=== PATIENT | female | born 1980 ===

== ENCOUNTER 2017-06-29 12:39 | Outpatient (CLI) | payer MEDICAID ==
--- NOTE | 2017-07-01 11:24 | Ultrasound Report ---
OB ULTRASOUND: 06/29/2017 CLINICAL INDICATION: anatomy. TECHNIQUE: Real-time scanning was performed with technology sales representative static images obtained. LAST MENSTRUAL PERIOD: 01/10/2017 Clinical Age: 24 weeks 2 days US Age: 22 weeks 5 days EFW Hadlock: 546 g EFW% Hadlock: 5% Heart Rate: 166 bpm EDC: 10/17/2017 US EDC: 10/28/2017 BPD Hadlock: 22 weeks 0 days; Mean mm 52.5 HC Hadlock: 22 weeks 4 days; Mean mm 205.1 AC Hadlock: 22 weeks 3 days; Mean mm 175.5 FL Hadlock: 23 weeks 5 days; Mean mm 42.0 Presentation: --- Placental Location: posterior Cervical Length: 4.2 cm Amniotic Fluid: 4.5 cm FINDINGS: There is a single viable intrauterine gestation, in variable position. heart rate is 166 BPM. The placenta is posterior, without evidence of previa. Amniotic fluid volume is subjectively normal, with a deepest pocket of 4.5 cm. By size, the fetus measures 22 weeks 5 days (24 weeks 2 days by LMP). The following anatomic structures were visualized and appear normal: The intracranial contents, including the ventricles and posterior fossa; the lips and orbits; the spine; the heart, including 4 chamber view and outflow tracts, and diaphragm; the abdominal contents, including the stomach, the bilateral kidneys, and urinary bladder, as well as a normal 3 vessel cord insertion; 4 limbs. Incidental note is made of a 1.3 cm leiomyoma in the anterior myometrium. No free fluid or adnexal lesion is appreciated. IMPRESSION: SINGLE VIABLE INTRAUTERINE GESTATION, WITH SIZE IN KEEPING WITH LMP DATING. NORMAL ANATOMIC SURVEY. INCIDENTAL SMALL LEIOMYOMA. MTDD
== END 2017-06-29 12:40 | disposition home or self-care (01) ==
LOC: DI 12:39
PROVIDERS: ATTEND Nurse Practitioner Obstetrics & Gynecology
DX: Z36.9 Encounter for antenatal screening, unspecified (principal); O34.12 Maternal care for benign tumor of corpus uteri, second trimester; D25.9 Leiomyoma of uterus, unspecified; Z3A.24 24 weeks gestation of pregnancy
CPT/HCPCS: 76811

== ENCOUNTER 2017-07-18 10:18 | Outpatient (CLI) | payer MEDICAID ==
[2017-07-18 12:09] LABS: BASOPHILS # (AUTO) 0.1 10^3/uL (0.0-0.1); BASOPHILS % (AUTO) 0.7 %; EOSINOPHILS # (AUTO) 0.2 10^3/uL (0.0-0.7); EOSINOPHILS % (AUTO) 2.1 %; HGB - HEMOGLOBIN 11.8 g/dL (12.0-16.0); LYMPHOCYTES # (AUTO) 1.7 10^3/uL (1.5-3.5); LYMPHOCYTES % (AUTO) 15.3 %; MEAN CORPUSCULAR HEMOGLOBIN 30.8 pg (27.0-31.0); MEAN PLATELET VOLUME 6.6 fL (7.9-10.8); MONOCYTES # (AUTO) 0.9 10^3/uL (0.0-1.0); MONOCYTES % (AUTO) 8.6 %; NEUTROPHILS % (AUTO) 73.3 %; PLT - PLATELET COUNT 307 10^3/uL (130-450); RED BLOOD COUNT 3.83 10^6/uL (4.20-5.40); RED CELL DISTRIBUTION WIDTH 12.8 % (12.0-15.0); WHITE BLOOD COUNT 10.9 x10^3/uL (4.8-10.8)
== END 2017-07-18 10:19 | disposition home or self-care (01) ==
LOC: LAB 10:18
PROVIDERS: ATTEND Registered Nurse
DX: Z34.82 Encounter for supervision of other normal pregnancy, second trimester (principal)
CPT/HCPCS: 36415; 82950; 85025; 86850

== ENCOUNTER 2017-07-22 13:40 | Outpatient (CLI) | payer MEDICAID | END 2017-07-22 13:41 | disposition home or self-care (01) | LOC: LAB.R 13:40 | PROVIDERS: ATTEND Physician Assistant Medical | DX: R07.0 Pain in throat (principal) | CPT/HCPCS: 87070 ==

== ENCOUNTER 2017-08-10 06:13 | Outpatient (CLI) | payer MEDICAID | END 2017-08-10 06:14 | disposition home or self-care (01) | LOC: LAB.R 06:13 | PROVIDERS: ATTEND Nurse Practitioner Obstetrics & Gynecology | DX: N89.8 Other specified noninflammatory disorders of vagina (principal) | CPT/HCPCS: 87480; 87510; 87660 ==

== ENCOUNTER 2017-09-20 08:00 | Outpatient (CLI) | payer MEDICAID | END 2017-09-20 08:01 | disposition home or self-care (01) | LOC: LAB.R 08:00 | PROVIDERS: ATTEND Nurse Practitioner Obstetrics & Gynecology | DX: Z36.85 Encounter for antenatal screening for Streptococcus B (principal) | CPT/HCPCS: 87081 ==

== ENCOUNTER 2017-10-22 19:05 | Inpatient (IN) | payer MEDICAID ==
[2017-10-22 19:59] LABS: RUPTURE OF MEMBRANES PLUS POSITIVE (NEGATIVE)
[2017-10-22] MEDS ORDERED: ONDANSETRON 4 MG/2 ML VIAL IVP PRN (20:10)
[2017-10-22] MEDS ORDERED: SODIUM CHLORIDE FLUSH 0.9% 10 ML SYRINGE IVP PRN (20:10)
[2017-10-22 20:42] LABS: BASOPHILS % (AUTO) 0.3 %; EOSINOPHILS # (AUTO) 0.1 10^3/uL (0.0-0.7); EOSINOPHILS % (AUTO) 1.1 %; HGB - HEMOGLOBIN 12.5 g/dL (12.0-16.0); LYMPHOCYTES # (AUTO) 1.9 10^3/uL (1.5-3.5); LYMPHOCYTES % (AUTO) 16.4 %; MEAN CORPUSCULAR HEMOGLOBIN 29.4 pg (27.0-31.0); MEAN CORPUSCULAR HGB CONC 34.2 g/dL (32.0-36.0); MEAN PLATELET VOLUME 7.9 fL (7.9-10.8); MONOCYTES # (AUTO) 0.8 10^3/uL (0.0-1.0); MONOCYTES % (AUTO) 6.6 %; NEUTROPHILS # (AUTO) 8.7 10^3/uL (1.5-6.6); NEUTROPHILS % (AUTO) 75.6 %; PLT - PLATELET COUNT 305 10^3/uL (130-450); RED BLOOD COUNT 4.27 10^6/uL (4.20-5.40); RED CELL DISTRIBUTION WIDTH 13.3 % (12.0-15.0); WHITE BLOOD COUNT 11.6 x10^3/uL (4.8-10.8)
[2017-10-22] MEDS ORDERED: miSOPROStol 100 MCG TABLET BC SCH (21:00)
[2017-10-22] MEDS ORDERED: fentaNYL 100 MCG/2 ML VIAL IVP PRN (21:29)
--- NOTE | 2017-10-22 21:44 | HISTORY & PHYSICAL EXAMINATION ---
Admit History - Instructions Ramona/Slash: -Left hand click circles element as positive or present. -Right hand click slashes element as negative or not present. - Visit Reason Visit Reason: Membranes rupture - : 1 Parity: 0 Premature: 0 Ectopic: 0 : 0 Care: positive: [facility] Risk/History: positive: None Complications This : positive: None Smoking Status: Never smoker - Mother's Labs Mother's Blood Type: positive: AB Mother's RH: positive: Positive GBS: positive: Group B Step Negative Rubella Status: positive: Immune Meds/Allgy - Allergies Allergies/Adverse Reactions: Allergies Allergy/AdvReac Type Severity Reaction Status Date / Time codeine Allergy Cramps Verified 10/22/17 21:00 Physical - Abdominal Exam Vital Signs: Temp Pulse Resp BP Pulse Ox 36.6 C 98 18 133/86 H 98 10/22/17 19:25 10/22/17 19:25 10/22/17 19:25 10/22/17 19:25 10/22/17 19:25 Contraction Frequency (min/apart): 2 Contraction Intensity: positive: Mild to moderate, Irritability Uterine Resting Tone: positive: Soft - Monitoring Heart Rate Baseline: 140 Strip Review: positive: Category I - Presentation Presentation: positive: Vertex - Vaginal Exam Membranes: positive: Membranes ruptured Dilation (in cm): 4 Effacement (%): 90 Station: positive: 0 Cervical Position: positive: Midposition - Speculum Exam Speculum Exam Performed: positive: Yes Findings: positive: Nitrazine, Other - Other Notes Labor Progress Note/Additional Text: HPI: This 37yo @ 40.5wks gestation presents with c/o intermittent periods of painful contractions and gush of clear vaginal fluid with continued "light trickle" at 1300 on 10/22/2017. At that time she was experiencing painful contractions every 5-10 minutes with significant vaginal pressure. Pt reports at approximately 1700 contractions decreased and she has felt very few contractions since that time. Reports continued leakage of small amount of clear vaginal fluid. Denies VB. Reports +FM. Nitrizine inconclusive. ROM plus positive. , mom, and mother in law are supportive at the bedside. SVE 4/80/0, vertex, posterior (unchanged from previous examination in the office yesterday) 2 contractions appreciate via tocometry in a 20 minute period of time - pt reports she is unable to feel them. Esthela transferred her care to [facility] and has been in the care of the midwifery service since 20 wks gestation. Her has been complicated only by advanced maternal age and recurrent vaginal candidias. Dating criteria: 1.) LMP 01/10/2017 2.) Initial ultrasound @ 8.5wks - agrees 3.) Serial exams 14-40 wks - agree OB History: G1: Current [employer] History: Endometriosis with laparoscopy/hysteroscopy/D&C in 2012 No hx STDs. Last pap 10/30/2015 WNL; no hx abnormal pap Menarche age 17; regular cycle q 27-28 days PMHx: Anxiety Past Surgical Hx: non- related D&C in 2012 Social Hx: Never smoker, no ETOH or IVDA. Pt is engaged to her long-time partner Trever. 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 Labs: Blood type AB, Rh positive, antibody neg Hgb 12.2, Hct 37.0 PLT 307 HIV non-reactive Genetic testing: [place] screen @ 14.2wks Low probability x3 28 week labs: 1 hour GTT 89 Hgb 11.8, Hct 33.7 PLT 307 Antibody neg GBS negative Tdap 07/29/2017 Allergies: Codeine; penicillins Medications: PNV Physical Exam: Heart RRR w/o M/G/R Lungs CTAB Abdomen gravid, soft, nontender. EFW 3400g Bilateral LE's no edema Mood is good Assessment: 37yo @ 40.5wks gestation by L=8.5wks gestation Augmentation of labor GBS neg SROM x 8 hours Plan: Misoprostol 50mcg BC q 4 hours Repeat SVE prior to next dose of misoprostol if contractions are increasing in frequency and intensity Continuous monitoring Encouraged position changes with discomfort Ambien 5mg x1 PRN for sleep May use hydrotherapy or nitrous oxide for pain management Anticipate spontaneous vaginal delivery
[2017-10-22] MEDS ORDERED: LACTATED RINGERS 1,000 ML IV SCH (22:00)
[2017-10-22] MEDS ORDERED: ZOLPIDEM 5 MG TABLET PO PRN (22:25)
[2017-10-23] MEDS ORDERED: OXYTOCIN/SODIUM CHLORIDE 500 ML IV ONE (00:23)
[2017-10-23] MEDS ORDERED: SODIUM CHLORIDE FLUSH 0.9% 10 ML SYRINGE IVP SCH (01:00)
[2017-10-23] MEDS ORDERED: miSOPROStol 100 MCG TABLET BC SCH (01:00)
[2017-10-23] MEDS ORDERED: HYDROCORTISONE/PRAMOXINE 10 GM PR PRN (02:33)
[2017-10-23] MEDS ORDERED: WITCH HAZEL/GLYCERIN 1 EACH MED..PAD TOP PRN (02:33)
[2017-10-23] MEDS ORDERED: OXYTOCIN/SODIUM CHLORIDE 250 ML IV ONE (02:33)
--- NOTE | 2017-10-23 02:50 | DELIVERY NOTE ---
Delivery Note - Labor Labor: positive: Spontaneous, Other - Delivery Method Delivery Method: positive: Spontaneous vaginal delivery - Presentation Presentation: positive: Vertex, MAY - left occiput anterior - Nuchal Cord Nuchal Cord: positive: None - Amniotic Fluid Description Amniotic Fluid Description: positive: Clear - Episiotomy Type Episiotomy Type: positive: None - Laceration Laceration: positive: None - Delivery Outcome Delivery Outcome: positive: Livebirth - [place]: positive: Placed in direct skin contact with mother, Bulb syringe, Stimulated, Warmed, [place] used sex: positive: Male - Cord Cord: positive: 3 vessels - Placenta Placenta: positive: Intact, Spontaneous - Estimated Blood Loss Estimated Blood Loss (in cc): 200 - Post Delivery Events Post Delivery Events: positive: No post delivery events - Delivery Comments (Free Text/Narrative) Delivery Comments (Free Text/Narrative): Labor: This 37yo @ 40.5wks gestation by L=8.2wk U/S presented @ 2000 with SROM x 7 hours. She reports intermittent painful contractions throughout the day and felt she was entering active labor prior to leakage of clear vaginal fluid at 1300 on 10/22/2017. She reports cessation of contractions at approximately 1700. Pt continued to experience leaking of a small amount of clear vaginal fluid and presented to [facility] at approximately 2000 on 10/22/2017. Cervix was 4/80/0, posterior, vertex. FHR pattern demonstrated a Category I tracing throughout labor. Misoprostol 50mcg BC was administered x1 for augmentation. Patient experienced a large gush of clear vaginal fluid at approximately 0000. She progressed to c/c/+1 with spontaneous urge to push at 0122 on 10/23/2017. : Normal of viable male infant. No nuchal. 's 9 and 9 at 1 and 5 min respectively at 0200 on 10/23/2017. The was placed on maternal abdomen, stimulated, dried, and placed skin to skin. The umbilical cord was allowed to stop pulsating at which time it was doubly clamped and cut by FOB. Cord blood was obtained. Pitocin administered via IV for hemostasis. Placenta delivered spontaneously and intact at 0206. EBL 200mL. Fourth Stage: Uterine fundus firm and there is no excessive bleeding. The perineum, vagina, and cervix were inspected and found to be intact with significant bruising noted to pelvic floor. initiated. Family bonding well. Both mother and baby were left in stable condition.
[2017-10-23] MEDS ORDERED: LACTATED RINGERS 1,000 ML IV SCH (03:00)
[2017-10-23] MEDS: IBUPROFEN 800 MG TABLET PO SCH ×4 (04:47→22:12)
[2017-10-23] MEDS: ACETAMINOPHEN 500 MG TABLET PO SCH ×3 (04:47→21:06)
[2017-10-23] MEDS: DOCUSATE SODIUM 100 MG CAPSULE PO SCH ×2 (09:12→21:09)
[2017-10-23] MEDS ORDERED: BENZOCAINE/MENTHOL LOZENGE MM PRN (09:53)
--- NOTE | 2017-10-23 10:01 | PROVIDER PROGRESS NOTE ---
Subjective - Subjective Subjective: S: Bonding well with baby. with some difficulty getting baby to latch initially. Feels well rested and mood is good. Bleeding decreased and is light. Pain is well controlled with ibuprofen. C/o slight sore throat which she feels is likely related to screaming in labor - requests throat lozenge for relief. , mother, mother in law, and father in law supportive at the bedside. O: BP 118/70, HR 77, T 36.6, RR 18 Heart RRR w/o M/G/R, lungs CTAB. Abdomen soft and nontender with fundus firm at U-2. Bilateral LE's no edema. Perineum intact with mild edema. Bruising improved. A: 37yo -->P1 day of delivery s/p TSVD of viable male over intact perineum P: Continue routine pp care and medications. Close attention paid to today. Plan for discharge home tomorrow. Pt and family verbalized understanding and agree to above plan. They deny further questions or concerns at this time. Objective - Vital Signs/Intake & Output Vital Signs: Vital Signs x48h Temp Pulse Resp BP Pulse Ox 10/23/17 08:00 36.6 C 77 18 118/70 100 10/23/17 05:14 2.7 C L 89 18 110/61 10/23/17 04:01 93 16 116/67 10/23/17 03:48 37.1 C 90 118/73 10/23/17 03:33 90 16 116/75 10/23/17 03:18 92 113/73 10/23/17 03:03 87 16 127/59 L 10/23/17 02:30 144/73 H 10/23/17 02:15 18 135/73 H Intake & Output: Intake & Output 10/20/17 10/21/17 10/22/17 10/23/17 23:59 23:59 23:59 23:59 Intake Total 720 Balance 720 - Lab Results Fish Bones: 10/22/17 20:20 Other Labs: Lab Results x24hrs 10/22/17 10/22/17 Range/Units 20:20 19:35 WBC 11.6 H (4.8-10.8) x10^3/uL RBC 4.27 (4.20-5.40) 10^6/uL Hgb 12.5 (12.0-16.0) g/dL Hct 36.7 L (37.0-47.0) % MCV 86.0 (81.0-99.0) fL MCH 29.4 (27.0-31.0) pg MCHC 34.2 (32.0-36.0) g/dL RDW 13.3 (12.0-15.0) % Plt Count 305 (130-450) 10^3/uL MPV 7.9 (7.9-10.8) fL Neut # (Auto) 8.7 H (1.5-6.6) 10^3/uL Lymph # (Auto) 1.9 (1.5-3.5) 10^3/uL Trigg # (Auto) 0.8 (0.0-1.0) 10^3/uL Eos # (Auto) 0.1 (0.0-0.7) 10^3/uL Baso # (Auto) 0.0 (0.0-0.1) 10^3/uL Absolute Nucleated RBC 0.00 x10^3/uL Nucleated RBC % 0.0 /100WBC Membranes Rupture POSITIVE A (NEGATIVE)
[2017-10-24] MEDS: IBUPROFEN 800 MG TABLET PO SCH ×2 (04:50→11:07)
[2017-10-24] MEDS: ACETAMINOPHEN 500 MG TABLET PO SCH (04:51)
[2017-10-24 05:40] LABS: HGB - HEMOGLOBIN 11.4 g/dL (12.0-16.0); MEAN CORPUSCULAR HGB CONC 33.5 g/dL (32.0-36.0); MEAN CORPUSCULAR VOLUME 86.8 fL (81.0-99.0); MEAN PLATELET VOLUME 7.6 fL (7.9-10.8); RED BLOOD COUNT 3.93 10^6/uL (4.20-5.40); RED CELL DISTRIBUTION WIDTH 13.4 % (12.0-15.0); WHITE BLOOD COUNT 11.5 x10^3/uL (4.8-10.8)
--- NOTE | 2017-10-24 08:47 | Discharge Plan ---
Discharge Plan Disposition: 01 Home, Self Care Condition: Good Diet: Regular Activity Restrictions: No Restrictions Shower Restrictions: No Driving Restrictions: No Weight Bearing: Full Weight No Smoking: If you smoke, Please STOP! Call for help. Follow-up with: Viola Woods CNM, ARNP [Primary Care Provider] -
[2017-10-24 08:49] VITALS: BP 122/70
[2017-10-24] MEDS ORDERED: MEASLES,MUMPS & RUBELLA VACC 0.5 ML VIAL SUBQ ONE (08:49)
--- NOTE | 2017-10-24 08:49 | PROVIDER PROGRESS NOTE ---
Subjective - Subjective Subjective: FINAL PROGRESS NOTE: S: Bonding well with baby. with little difficulty. Nipples sore with initial latch but improves throughout nursing session. Pain well controlled with ibuprofen. Perineum tender and bruised but overall she feels her pain is well controlled. Mood is good. Was able to get some good sleep last night. Bleeding decreased and is light. O: BP 124/79, HR 75, RR 18, O2 100, T36.7 Heart RRR w/o M/G/R, lungs CTAB, abdomen soft and nontender with fundus firm at U-3. Bilateral LE's no edema. Mood is good. A: 37yo -->P1 PPD#1 s/p TSVD of viable male MMR equivocal P: Reviewed care and warning signs. Has emergency contact number. Rx handwritten and provided to pt for Ibuprofen 800mg Sig 1 tab PO q8hrs PRN pain #60 with 1 refill; All purpose nipple ointment #30 gram tube to apply sparingly to affected nipples PRN with 2 refills. MMR administration prior to discharge home today. Unsure of her plans for contraception - likely condoms. She plans to f/u with myself at [facility] in 1 week for support visit, in 3 weeks for routine visit, and in 8 weeks for annual well woman exam. Pt and verbalized understanding and agree to above plan. Denies further questions or concerns at this time. Objective - Vital Signs/Intake & Output Intake & Output: Intake & Output 10/21/17 10/22/17 10/23/17 10/24/17 23:59 23:59 23:59 23:59 Intake Total 3120 Balance 3120 - Lab Results Fish Bones: 10/24/17 05:25 Other Labs: Lab Results x24hrs 10/24/17 10/24/17 Range/Units 05:25 05:25 WBC 11.5 H (4.8-10.8) x10^3/uL RBC 3.93 L (4.20-5.40) 10^6/uL Hgb 11.4 L (12.0-16.0) g/dL Hct 34.1 L (37.0-47.0) % MCV 86.8 (81.0-99.0) fL MCH 29.0 (27.0-31.0) pg MCHC 33.5 (32.0-36.0) g/dL RDW 13.4 (12.0-15.0) % Plt Count 292 (130-450) 10^3/uL MPV 7.6 L (7.9-10.8) fL Rubella IgG Antibody 12.1 IU/mL
[2017-10-24] MEDS: DOCUSATE SODIUM 100 MG CAPSULE PO SCH (09:02)
--- NOTE | 2017-10-24 13:19 | Labor Flowsheet ---
Labor Flowsheet Datetime Report Generated by CPN: 10/24/2017 13:19 Datetime: 10/24/2017 08:17 VITAL SIGNS NBP Sys/Mehnaz/Mean (mmHg): 122 : 70 : 83 Pulse: 78 LaborFlag: Labor Datetime: 10/23/2017 02:00 UTERINE ACTIVITY Monitor Mode: External Frequency (min): q1-2 Quality: Strong Pattern: Tachysystole: > 5 Contractions in 10 Minutes Resting Tone (Palpate): Relaxed ASSESSMENT A Monitor Mode: External US FHR Baseline Rate : 120 Variability: Moderate 6-25 bpm Accelerations: 15X15 Decelerations: None Category: Category I Vaginal Exam Comments: Delivery of viable male Datetime: 10/23/2017 01:38 Station: 3 Medication Comments: nitrous discontinued Datetime: 10/23/2017 01:30 FHR Baseline Changes: Bradycardia Datetime: 10/23/2017 01:22 VAGINAL EXAM Dilatation (cm): 10.0 Datetime: 10/23/2017 01:15 Duration (sec): poor trace Datetime: 10/23/2017 00:55 Patient Care Comments: patient screaming and uncontrolled stating "the baby is coming" SVE at this time (7cm.) CNM Peggy called and notified of SVE, and patient discomfort. Orders received for PRN Nitr ous Oxide (See nursing note written by RNC Spear. Datetime: 10/23/2017 00:50 Comments: FHT difficult to obtain while patient laboring on toilet U/S adjusted frequently and manu ally held in place to attain FHT. Datetime: 10/23/2017 00:25 Effacement (%): 90 Exam by: Arin Lazo RNC Vaginal Bleeding: Normal Show Cervix, Consistency: Soft Cervix, Position: Anterior Datetime: 10/23/2017 00:10 Monitor Interventions for UA: [place] Adjusted Datetime: 10/22/2017 23:55 Temperature (C): 36.6 Temperature Route: Oral Datetime: 10/22/2017 23:45 Membrane Status: Ruptured Membranes Ruptured Date/Time: 10/22/2017 15:00 Membranes Rupture Method: Spontaneous Amniotic Fluid Color: Clear Amniotic Fluid Amount: Large Amniotic Fluid Odor: None Pool: Positive Datetime: 10/22/2017 23:00 I/O Interventions: Up to BR Datetime: 10/22/2017 22:59 PAIN Pain Assessment Comments: Patient reports that pain has intensified but declines pain intervention at this time. plan of care reviewed as per to for nursing staff to not inquire about pain level so fr equently and that patient will verbalize when/if she desires pain intervention. patient states freque ntly changing position and activity is helping her to cope at this time. Datetime: 10/22/2017 22:58 Patient Position/Activity: Birthing Ball Datetime: 10/22/2017 21:30 Monitor Interventions for FHR: Ultrasound Adjusted PATIENT CARE Oxygen Method: Room Air Datetime: 10/22/2017 21:12 COMMUNICATION Communication: Provider at Bedside Provider Notified (Name): CNM Peggy Notification Reason: Labor Status; Patient Request Datetime: 10/22/2017 21:09 MEDICATIONS Cervical Ripening Agents: Cytotec @ (Annotations: 50 BC)
[2017-10-25 14:12] LABS: HEPATITIS B SURFACE ANTIGEN NON-REACTIVE (NON-REACTIVE)
[2017-10-25 14:13] LABS: HEPATITIS C ANTIBODY NON-REACTIVE (NON-REACTIVE)
== END 2017-10-24 12:00 | disposition home or self-care (01) | DRG 775 ==
LOC: WFO 19:05 → FBP 19:08 → WFO 21:03 → FBP 10-23 20:19
PROVIDERS: ADMIT Nurse Practitioner Obstetrics & Gynecology; ATTEND Nurse Practitioner Obstetrics & Gynecology
PROC: 3E033VJ Introduction of Other Hormone into Peripheral Vein, Percutaneous Approach (ICD-10-PCS; principal; 2017-10-23)
PROC: 10E0XZZ Delivery of Products of Conception, External Approach (ICD-10-PCS; 2017-10-23)
PROC: 3E0P7VZ Introduction of Hormone into Female Reproductive, Via Natural or Artificial Opening (ICD-10-PCS; 2017-10-23)
DX: O80 Encounter for full-term uncomplicated delivery (principal); Z3A.40 40 weeks gestation of pregnancy; Z23 Encounter for immunization; Z37.0 Single live birth
CPT/HCPCS: 36415; 81599; 84112; 85025; 85027; 86762; 86803; 87340; 99213

== ENCOUNTER 2018-05-12 09:01 | Outpatient (CLI) | payer OTHER ==
[2018-05-12 11:12] LABS: BASOPHILS # (AUTO) 0.1 10^3/uL (0.0-0.1); BASOPHILS % (AUTO) 0.7 %; EOSINOPHILS # (AUTO) 0.2 10^3/uL (0.0-0.7); EOSINOPHILS % (AUTO) 2.7 %; HGB - HEMOGLOBIN 13.5 g/dL (12.0-16.0); LYMPHOCYTES # (AUTO) 1.7 10^3/uL (1.5-3.5); LYMPHOCYTES % (AUTO) 20.6 %; MEAN CORPUSCULAR HEMOGLOBIN 29.5 pg (27.0-31.0); MEAN CORPUSCULAR HGB CONC 34.9 g/dL (32.0-36.0); MEAN CORPUSCULAR VOLUME 84.3 fL (81.0-99.0); MEAN PLATELET VOLUME 7.8 fL (7.9-10.8); MONOCYTES # (AUTO) 0.7 10^3/uL (0.0-1.0); NEUTROPHILS # (AUTO) 5.4 10^3/uL (1.5-6.6); PLT - PLATELET COUNT 353 10^3/uL (130-450); RED BLOOD COUNT 4.57 10^6/uL (4.20-5.40); RED CELL DISTRIBUTION WIDTH 13.1 % (12.0-15.0)
[2018-05-12 11:16] LABS: ALBUMIN 4.6 g/dL (3.2-5.5); ALBUMIN/GLOBULIN RATIO 1.7 (1.0-2.2); BILIRUBIN,TOTAL 0.8 mg/dL (0.2-1.0); CREATININE 0.7 mg/dL (0.4-1.0); TOTAL PROTEIN 7.3 g/dL (6.7-8.2)
[2018-05-12 14:18] LABS: CALCIUM 9.6 mg/dL (8.5-10.3)
== END 2018-05-12 09:02 | disposition home or self-care (01) ==
LOC: LAB.F 09:01
PROVIDERS: ATTEND Physician Assistant Medical
DX: R11.0 Nausea (principal); R63.0 Anorexia; R10.9 Unspecified abdominal pain; Z80.0 Family history of malignant neoplasm of digestive organs
CPT/HCPCS: 36415; 80053; 82150; 83690; 85025

== ENCOUNTER 2018-05-15 08:00 | Outpatient (CLI) | payer OTHER ==
[2018-05-15 15:17] LABS: H. PYLORIS ANTIGEN STL NEGATIVE (Negative)
== END 2018-05-15 23:59 | disposition home or self-care (01) ==
LOC: LAB.R 08:00
PROVIDERS: ATTEND Physician Assistant Medical
DX: Z80.0 Family history of malignant neoplasm of digestive organs (principal); R11.0 Nausea; R63.0 Anorexia; R10.9 Unspecified abdominal pain
CPT/HCPCS: 87338

== ENCOUNTER 2018-05-27 09:48 | Outpatient (CLI) | payer OTHER ==
[2018-05-27] MEDS ORDERED: IOPAMIDOL-300 50 ML VIAL ONE (09:57)
[2018-05-27] MEDS ORDERED: IOPAMIDOL-300 100 ML VIAL ONE (09:58)
[2018-05-27] MEDS ORDERED: IOVERSOL 320 50 ML VIAL PO ONE (11:16)
[2018-05-27] MEDS ORDERED: IOPAMIDOL-300 100 ML VIAL IVP ONE (11:16)
--- NOTE | 2018-05-27 16:50 | CT Report ---
Reason: DECREASED APPETITE, ABDOMINAL PAIN, NAUSEA, FAMILY HISTORY OF CAN Procedure Date: 05/27/2018 Accession Number: [id number] / [id number] Procedure: CT - Abdomen/Pelvis W CPT Code: FULL RESULT: EXAM: CT ABDOMEN AND PELVIS EXAM DATE: 05/27/2018 10:59 AM. CLINICAL HISTORY: DECREASED APPETITE, ABDOMINAL PAIN, NAUSEA, FAMILY HISTORY OF PANCREATIC CANCER. COMPARISONS: None. TECHNIQUE: Routine helical CT imaging was performed through the abdomen and pelvis. IV contrast: ISOVUE 300 100mL. Enteric contrast: Yes. Reconstructions: Coronal and sagittal. In accordance with CT protocol optimization, one or more of the following dose reduction techniques were utilized for this exam: automated exposure control, adjustment of mA and/or KV based on patient size, or use of iterative reconstructive technique. FINDINGS: Lung Bases: Unremarkable. Liver: Normal size and contour. Minimal hypodensity adjacent to the fissure for the ligamentum teres consistent with focal fatty infiltration. There is a 1.2 cm rounded mildly hypodense focus in the anterior right lobe (3/16) with possible minimal nodular eccentric enhancement particularly along its posterior aspect and inferior aspect best seen on coronal and sagittal images, likely a hemangioma. No other focal lesions are identified. Gallbladder/Bile Ducts: Unremarkable. Spleen: Normal. Pancreas: Normal. No mass is identified. No ductal dilatation is present. Adrenal Glands: Normal. Kidneys: There is a 1 cm circumscribed rounded hypodensity consistent with a cyst in the anterior cortex of the upper pole of the left kidney. Right kidney is unremarkable. Peritoneal Cavity/Bowel: Stomach and small bowel are unremarkable. Appendix is normal. Cecum is extending into the pelvis. There is minimal formed stool in the colon. There is no focal pericolonic fat stranding. No lymphadenopathy, ascites, or pneumoperitoneum. Pelvic Organs: Bladder is unremarkable. Uterus is mildly retroverted. IUD is in the expected position. Ovaries are unremarkable. Vasculature: No aneurysms or other significant abnormality. Bones: No significant abnormality. Other: Abdominal wall unremarkable. IMPRESSION: 1. Negative CT abdomen and pelvis. No mass or findings to explain pain. 2. 1.2 cm nodule in the anterior right hepatic lobe suggestive of a cavernous hemangioma. RADIA
== END 2018-05-27 09:49 | disposition home or self-care (01) ==
LOC: DI 09:48
PROVIDERS: ATTEND Physician Assistant Medical
DX: R10.9 Unspecified abdominal pain (principal); R11.0 Nausea; R63.0 Anorexia; K76.9 Liver disease, unspecified; Z80.0 Family history of malignant neoplasm of digestive organs
CPT/HCPCS: 74177; Q9967

== ENCOUNTER 2018-11-02 10:44 | Outpatient (CLI) | payer OTHER ==
--- NOTE | 2018-11-02 13:34 | Mammography Report ---
Reason: BREAST TENDERNESS, FIBROCYSTIC BREAST CHANGES Procedure Date: 11/02/2018 Accession Number: [id number] / [id number] Procedure: CORINNE - Diagnostic Dig Bilat CPT Code: FULL RESULT: EXAM: Diagnostic Dig Bilat, Breast Unilateral Limited DATE: 11/02/2018 11:36 AM CLINICAL HISTORY: Palpable lump right breast. Breast tenderness. COMPARISON: New baseline. BILATERAL MAMMOGRAPHY: TECHNIQUE: (B) - Bilateral CC and MLO views were obtained. PARENCHYMAL PATTERN: (D) - The breasts demonstrate heterogeneously dense fibroglandular parenchyma bilaterally. FINDINGS: There are no suspicious masses, calcifications, or areas of distortion. No abnormality is seen in the area of clinical concern right upper outer quadrant. RIGHT BREAST ULTRASOUND: TECHNIQUE: Targeted ultrasound was performed of the right breast in the area of clinical concern at 9-10 o'clock and 4 cm distance from the nipple. Color Doppler was employed as appropriate. FINDINGS: No cystic or solid mass, abnormal fluid collection, architectural distortion, or other abnormality is seen in the area of clinical concern. IMPRESSION: Negative examination. BI-RADS category 1. Suggest clinical follow-up of the area of concern. RECOMMENDATION: (ANNUAL) - Recommend routine annual screening mammography Beginning at age 40. BI-RADS CATEGORY: (1) - Negative. STANDARD QUALIFYING STATEMENTS: 1. This examination was not reviewed with the aid of Computer-Aided Detection (CAD). 2. A negative or benign imaging report should not preclude biopsy if clinically suspicious findings are present. 3. Dense breasts may obscure an underlying neoplasm. 4. This examination was reviewed with the aid of 3D breast imaging (tomosynthesis).
== END 2018-11-02 10:45 | disposition home or self-care (01) ==
LOC: DI 10:44
PROVIDERS: ATTEND Nurse Practitioner Obstetrics & Gynecology
DX: N64.4 Mastodynia (principal)
CPT/HCPCS: 76642; 77062; 77066

== ENCOUNTER 2019-11-19 12:19 | Outpatient (CLI) | payer OTHER | END 2019-11-19 12:20 | disposition home or self-care (01) | LOC: LAB.S 12:19 | PROVIDERS: ATTEND Obstetrics & Gynecology | DX: Z31.9 Encounter for procreative management, unspecified (principal) | CPT/HCPCS: 36415; 81599; 83520; 84144; 84146 ==

== ENCOUNTER 2020-03-01 08:22 | Outpatient (CLI) | payer OTHER ==
--- NOTE | 2020-03-01 11:36 | Ultrasound Report ---
PROCEDURE: Pelvic w/Transvaginal INDICATIONS: DESIRE FOR . Uterine fibroid. TECHNIQUE: Real-time scanning was performed of the pelvic organs, with image documentation. Additional endovagi nal scanning was necessary due to incomplete visualization of the adnexal and endometrial structures by transabdominal scanning. COMPARISON: Images only from a prior OB ultrasound dated 06/29/2017. Prior CT, 05/27/2018. FINDINGS: Transabdominal scanning: Limited scanning through the kidneys shows no hydronephrosis. There is a mi ld amount of free pelvic fluid seen, which is considered to be within physiologic limits. Endovaginal scanning: Uterus: Uterus is normal in size at 8.3 x 4 x 4.9 cm. The endometrium measures 11 mm in combined th ickness. The previously described fibroid is not seen on the current study. Ovaries: The right ovary measures 3.5 x 1.7 x 3 cm and demonstrates more than 12 follicles. The left ovary measures 2.6 x 2.5 x 2.3 cm and demonstrates less than 12 follicles. There is a dominant cysti c follicle seen within the left ovary measuring 17 mm. No adnexal masses are seen on either side. IMPRESSION: The previously seen fibroid is no longer seen. Reviewed by: Keith Feliciano MD on 03/01/2020 10:34 AM [facility] Approved by: Keith Feliciano MD on 03/01/2020 10:34 AM [facility] Station ID: [id number]
== END 2020-03-01 08:23 | disposition home or self-care (01) ==
LOC: DI 08:22
PROVIDERS: ATTEND Obstetrics & Gynecology
DX: Z31.9 Encounter for procreative management, unspecified (principal)

== ENCOUNTER 2021-06-12 08:00 | Outpatient (CLI) | payer OTHER | END 2021-06-12 23:59 | disposition home or self-care (01) | LOC: LAB 08:00 | PROVIDERS: ATTEND Obstetrics & Gynecology Obstetrics | DX: Z32.00 Encounter for pregnancy test, result unknown (principal) | CPT/HCPCS: 36415; 84702 ==

== ENCOUNTER 2021-06-15 11:01 | Outpatient (CLI) | payer OTHER | END 2021-06-15 11:02 | disposition home or self-care (01) | LOC: LAB 11:01 | PROVIDERS: ATTEND Obstetrics & Gynecology Obstetrics | DX: O02.81 Inappropriate change in quantitative human chorionic gonadotropin (hCG) in early pregnancy (principal) | CPT/HCPCS: 36415; 84702 ==

== ENCOUNTER 2021-06-17 10:55 | Outpatient (CLI) | payer OTHER | END 2021-06-17 10:56 | disposition home or self-care (01) | LOC: LAB 10:55 | PROVIDERS: ATTEND Obstetrics & Gynecology Obstetrics | DX: Z32.00 Encounter for pregnancy test, result unknown (principal) | CPT/HCPCS: 36415; 84702 ==

== ENCOUNTER 2021-06-19 09:52 | Outpatient (CLI) | payer OTHER | END 2021-06-19 09:53 | disposition home or self-care (01) | LOC: LAB 09:52 | PROVIDERS: ATTEND Obstetrics & Gynecology Obstetrics | DX: O02.81 Inappropriate change in quantitative human chorionic gonadotropin (hCG) in early pregnancy (principal) | CPT/HCPCS: 36415; 84702 ==

== ENCOUNTER 2022-01-30 10:10 | Outpatient (CLI) | payer OTHER | END 2022-01-30 10:11 | disposition home or self-care (01) | LOC: LAB 10:10 | PROVIDERS: ATTEND Obstetrics & Gynecology Obstetrics | DX: Z32.00 Encounter for pregnancy test, result unknown (principal); O02.81 Inappropriate change in quantitative human chorionic gonadotropin (hCG) in early pregnancy | CPT/HCPCS: 36415; 84702 ==

== ENCOUNTER 2022-02-01 13:18 | Outpatient (CLI) | payer OTHER | END 2022-02-01 13:19 | disposition home or self-care (01) | LOC: LAB 13:18 | PROVIDERS: ATTEND Obstetrics & Gynecology Obstetrics | DX: Z32.00 Encounter for pregnancy test, result unknown (principal); O02.81 Inappropriate change in quantitative human chorionic gonadotropin (hCG) in early pregnancy | CPT/HCPCS: 36415; 84702 ==

== ENCOUNTER 2022-07-15 09:24 | Outpatient (CLI) | payer OTHER ==
[2022-07-15 10:41] LABS: HCT - HEMATOCRIT 35.1 % (37.0-47.0); HGB - HEMOGLOBIN 11.8 g/dL (12.0-16.0); MEAN CORPUSCULAR HEMOGLOBIN 29.8 pg (27.0-31.0); MEAN CORPUSCULAR HGB CONC 33.6 g/dL (32.0-36.0); MEAN CORPUSCULAR VOLUME 88.6 fL (81.0-99.0); MEAN PLATELET VOLUME 8.6 fL (7.9-10.8); RED BLOOD COUNT 3.96 10^6/uL (4.20-5.40); RED CELL DISTRIBUTION WIDTH 13.2 % (12.0-15.0); WHITE BLOOD COUNT 9.5 x10^3/uL (4.8-10.8)
== END 2022-07-15 09:25 | disposition home or self-care (01) ==
LOC: LAB 09:24
PROVIDERS: ATTEND Nurse Practitioner Obstetrics & Gynecology
DX: Z36.9 Encounter for antenatal screening, unspecified (principal)
CPT/HCPCS: 36415; 82950; 85027

== ENCOUNTER 2022-09-17 13:50 | Outpatient (CLI) | payer OTHER ==
--- NOTE | 2022-09-21 15:25 | PROCEDURE REPORT ---
- HPI Diagnosis/Indication for NST: Other Current EDU 10/07/22 Gestation 37 Weeks and 1 Days 3 Para 1 Vital Signs Temperature 36.7 C 09/17/22 14:02 Heart Rate 84 09/17/22 14:02 Respiratory Rate 16 09/17/22 14:02 Temperature 36.7 C 09/17/22 14:02 Heart Rate 84 09/17/22 14:02 Respiratory Rate 16 09/17/22 14:02 Blood Pressure O2 Saturation If not protocol: Oxygen Flow, liters/minute - NST Procedure NST Procedure Start Date 09/17/22 Start Time 14:00 Stop Time 14:40 Vibroacoustic Stimulation Used No Patient States Movement Yes - Results and Plan Plan: NST reactive. FHR baseline 130s, moderate variability, + accels, no decels No contractions appreciated via tocometry INDICATION: Advanced maternal age in , third trimester
== END 2022-09-17 14:45 | disposition home or self-care (01) ==
LOC: WFO 13:50 → FBP 13:52 → WFO 14:45
PROVIDERS: ATTEND Nurse Practitioner Obstetrics & Gynecology
DX: O09.523 Supervision of elderly multigravida, third trimester (principal); Z3A.37 37 weeks gestation of pregnancy
CPT/HCPCS: 59025

== ENCOUNTER 2022-09-24 13:50 | Outpatient (CLI) | payer OTHER ==
[2022-09-24 14:15] VITALS: BP 121/89
--- NOTE | 2022-09-28 12:30 | PROCEDURE REPORT ---
- HPI Diagnosis/Indication for NST: Other Current EDU 10/07/22 Gestation 38 Weeks and 1 Days 3 Para 1 Vital Signs Temperature 36.7 C 09/24/22 14:11 Heart Rate 86 09/24/22 14:11 Respiratory Rate 16 09/24/22 14:11 Blood Pressure 121/89 H 09/24/22 14:11 O2 Saturation 99 09/24/22 14:11 Temperature 36.7 C 09/24/22 14:40 Heart Rate 86 09/24/22 14:11 Respiratory Rate 16 09/24/22 14:11 Blood Pressure 121/89 H 09/24/22 14:11 O2 Saturation 99 09/24/22 14:11 If not protocol: Oxygen Flow, liters/minute - NST Procedure NST Procedure Start Date 09/24/22 Start Time 13:57 Stop Time 14:40 Vibroacoustic Stimulation Used No Patient States Movement Yes - Results and Plan Findings/Impression: NST reactive. FHR baseline 130s, moderate variability, + accels, no decels No contractions appreciated via tocoemtry FINAL DIAGNOSIS: Advanced maternal age in , third trimester
== END 2022-09-24 14:40 | disposition home or self-care (01) ==
LOC: WFO 13:50 → FBP 13:51 → WFO 14:40
PROVIDERS: ATTEND Nurse Practitioner Obstetrics & Gynecology
DX: O09.523 Supervision of elderly multigravida, third trimester (principal); Z3A.38 38 weeks gestation of pregnancy
CPT/HCPCS: 59025

== ENCOUNTER 2022-10-07 04:32 | Inpatient (IN) | payer OTHER ==
[2022-10-07] MEDS ORDERED: hydrALAZINE INJ 20 MG/ML VIAL IVP PRN ×2 (04:39)
[2022-10-07] MEDS ORDERED: LABETALOL 20 MG/4 ML SYRINGE IVP PRN ×3 (04:39)
[2022-10-07] MEDS ORDERED: miSOPROStoL 200 MCG TABLET BC PRN (04:39)
[2022-10-07] MEDS ORDERED: METHYLERGONOVINE 0.2 MG/ML VIAL IM PRN (04:39)
[2022-10-07] MEDS ORDERED: LACTATED RINGERS 1,000 ML IV PRN (04:39)
[2022-10-07] MEDS ORDERED: TRANEXAMIC ACID IN NACL 1,000 MG/100 ML BAG IV PRN (04:39)
[2022-10-07] MEDS ORDERED: TERBUTALINE 1 MG/ML VIAL SUBQ PRN (04:39)
[2022-10-07] MEDS ORDERED: lidocaine 1% 20 ML MDV ID PRN (04:39)
[2022-10-07] MEDS ORDERED: SODIUM CHLORIDE FLUSH 0.9% 10 ML SYRINGE IVP PRN (04:39)
[2022-10-07] MEDS ORDERED: NIFEdipine 10 MG CAPSULE PO PRN (04:39)
[2022-10-07] MEDS ORDERED: CARBOPROST TROMETHAMINE 250 MCG/ML AMP IM PRN (04:39)
[2022-10-07] MEDS ORDERED: fentaNYL 100 MCG/2 ML VIAL IVP PRN (04:39)
[2022-10-07] MEDS ORDERED: OXYTOCIN/SODIUM CHLORIDE 500 ML IV PRN (04:39)
[2022-10-07] MEDS ORDERED: miSOPROStoL 200 MCG TABLET PR PRN (04:39)
[2022-10-07] MEDS ORDERED: OXYTOCIN 10 UNIT/ML VIAL IM PRN (04:39)
[2022-10-07 05:28] LABS: BASOPHILS # (AUTO) 0.1 10^3/uL (0.0-0.1); BASOPHILS % (AUTO) 0.5 %; EOSINOPHILS # (AUTO) 0.1 10^3/uL (0.0-0.7); EOSINOPHILS % (AUTO) 1.1 %; HCT - HEMATOCRIT 37.3 % (37.0-47.0); HGB - HEMOGLOBIN 12.7 g/dL (12.0-16.0); LYMPHOCYTES # (AUTO) 2.3 10^3/uL (1.5-3.5); LYMPHOCYTES % (AUTO) 24.6 %; MEAN CORPUSCULAR HEMOGLOBIN 29.8 pg (27.0-31.0); MEAN CORPUSCULAR VOLUME 87.6 fL (81.0-99.0); MEAN PLATELET VOLUME 9.6 fL (7.9-10.8); MONOCYTES # (AUTO) 0.8 10^3/uL (0.0-1.0); MONOCYTES % (AUTO) 8.8 %; NEUTROPHILS % (AUTO) 64.7 %; PLT - PLATELET COUNT 268 10^3/uL (130-450); RED BLOOD COUNT 4.26 10^6/uL (4.20-5.40); WHITE BLOOD COUNT 9.2 x10^3/uL (4.8-10.8)
--- NOTE | 2022-10-07 08:07 | HISTORY & PHYSICAL EXAMINATION ---
Admit History - Visit Reason Visit Reason: Contractions - : 2 Parity: 1 Premature: 0 Ectopic: 0 : 0 Care: positive: [facility] Risk/History: positive: None Complications This : positive: None Smoking Status: Never smoker - Mother's Labs Mother's Blood Type: positive: AB Mother's RH: positive: Positive GBS: positive: Group B Step Negative Rubella Status: positive: Immune - HPI Diagnosis/Indication for NST: Other Current [facility] 10/07/22 Gestation 40 Weeks and 0 Days 4 Vital Signs Temperature 36.6 C 10/07/22 04:39 Heart Rate 105 H 10/07/22 04:39 Respiratory Rate 16 10/07/22 04:39 Blood Pressure 114/82 H 10/07/22 04:39 Temperature 36.8 C 10/07/22 04:51 Heart Rate 105 H 10/07/22 04:51 Respiratory Rate 14 10/07/22 04:51 Blood Pressure 114/82 H 10/07/22 04:51 O2 Saturation 100 10/07/22 04:51 If not protocol: Oxygen Flow, liters/minute - NST Procedure NST Procedure Start Time 13:57 Stop Time 14:40 - Results and Plan Plan: NST reactive. FHR baseline 140s, moderate variability, + accels, no decels Contractions palpate moderate to strong every 4-5 minutes with soft resting tone Meds/Allgy - Allergies Allergies/Adverse Reactions: Allergies Allergy/AdvReac Type Severity Reaction Status Date / Time codeine Allergy Cramps Verified 10/22/17 21:00 Review of Systems - Constitutional Constitutional: denies: Fatigue, Fever, Chills, Malaise - Eyes Eyes: denies: Blurred vision, Spots in vision, Dipolpia - Cardiovascular Cariovascular: denies: Irregular heart rate, Palpitations, Chest pain, Edema - Respiratory Respiratory: denies: Cough, Wheezing, SOB at rest - Gastrointestinal Gastrointestinal: denies: Constipation, Diarrhea, Nausea, Vomiting - Genitourinary Genitourinary: denies: Dysuria, Frequency - Musculoskeletal Musculoskeletal: denies: Back pain - Integumentary Integumentary: denies: Rash, Pruritis - Neurological Neurological: denies: Headache Physical - Abdominal Exam Vital Signs: Temp Pulse Resp BP Pulse Ox O2 Flow Rate 36.8 C 105 H 14 114/82 H 100 10/07/22 04:51 10/07/22 04:51 10/07/22 04:51 10/07/22 04:51 10/07/22 04:51 Contraction Frequency (min/apart): 4-5 Contraction Intensity: positive: Moderate Uterine Resting Tone: positive: Soft - Monitoring Heart Rate Baseline: 140 Strip Review: positive: Category I - Presentation Presentation: positive: Vertex - Vaginal Exam Membranes: positive: Membranes intact - Speculum Exam Speculum Exam Performed: positive: No Plan for Labor - Plan For Labor I expect patient to be DC'd or transferred within 96 hours.: Yes Plan for Labor: HPI: Esthela is a 42yo @ 40.0wks gestation by IVF transfer date who presents to [facility] with c/o contractions. She reports contractions woke her up this morning at approximately 0200 and have continued to increase in frequency and intensity since that time. She denies vaginal bleeding or leakage of fluid. She reports +FM. She is coping well with contractions and her is supportive at the bedside. Upon arrival FHR is category I pattern. SVE 5/80/-2, posterior and soft with intact membranes. She has been a patient of [facility] for the duration of her following her IVF transfer date. She was cared for initially by [facility]. She has had an uncomplicated with the exception of being advanced maternal age and IVF . She has received twice weekly NSTs and once weekly SKYE since 36wks gestation. Her has otherwise been uncomplicated. She will be admitted to [facility] for expectant management. 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 SAB x2. Last pap 2019 WNL, Hx abnormal pap in 2018 which reverted to normal after colposcopy. Medical Hx: infertility Surgical Hx: laproscopy and small amount of endometriosis ablation 2013 Family Hx: no significant Meds: PNV, 81mg ASA PO once daily Allergies: Codeine - stomach upset Social: , lives with Trever. 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 No tobacco, ETOH or recreational drug use. Caffeine intake - none. course: AB positive, antibody negative Rubella immune, varicella immune Hep B negative, Hep C negative HIV negative; RPR non-reactive IVF transfer dates Additional genetic screening declined. Embryo had negative genetic screening prior to implantation FAS completed with MFM at [facility]. Anterior placenta, no previa. Size c/w dating (EFW 93%tile). 3VC. Glucola 115 COVID-19 vaccine - J&J x 1, no booster Tdap received in 3rd trimester GBS negative Physical exam: Normocephalic, atraumatic Heart RRR w/o M/G/R Lungs CTAB Abdomen gravid, soft, nontender. EFW 3700g FHR baseline 140s, moderate variability, + accels, no decels Contractions palpate moderate every 4-5 minutes with soft resting tone SVE 5/80/-2, vertex. Membranes intact. Bilateral LE's no edema. Mood is good Assessment: 42yo @ 40.0wks gestation by IVF transfer date Early labor FHR Category I GBS negative Plan: Admit to [facility] for expectant management. Intermittent heart rate monitoring. Encouraged ambulation and position changes. Jacuzzi PRN. Nitrous oxide PRN. Anticipate .
--- NOTE | 2022-10-07 12:54 | PROVIDER PROGRESS NOTE ---
Labor Progress Note - Uterine Monitoring Uterine Monitoring Mode: positive: External toco Contraction Frequency (min/apart): 3-4 Contraction Intensity: positive: Strong Uterine Resting Tone: positive: Soft - Monitoring Monitor Mode: positive: External ultrasound Heart Rate Baseline: 140 Decelerations: positive: Early - Vaginal Exam Dilation (in cm): 8 Effacement (%): 100 Station: 0 - Labor Progress Note Labor Progress Note/Additional Text: S: Breathing through contractions. Feeling significantly increased pressure and the urge to push at the peak of the contraction. She is coping very well and her is supportive at the bedside. O: FHR baseline 140s with intermittent heart rate auscultation. Early decelerations to 120s noted with no late decelerations. Contractions palpate strong every 3-4 minutes with soft resting tone SVE 8/100/0 AROM x 2 hours - continues to leak clear fluid A: 42yo @ 40.0wks gestation Active labor GBS neg FHR reassuring P: Continue expectant management. Intermittent heart rate auscultation Encouraged ambulation and position changes. Jacuzzi PRN. Nitrous oxide PRN. Anticipate .
[2022-10-07] MEDS ORDERED: WITCH HAZEL/GLYCERIN 1 PAD TOP PRN (14:18)
[2022-10-07] MEDS ORDERED: HYDROCORTISONE 1% CREAM 28 GM TUBE PR PRN (14:18)
[2022-10-07] MEDS ORDERED: oxyCODONE 5 MG TABLET PO PRN (14:21)
--- NOTE | 2022-10-07 14:23 | DELIVERY NOTE ---
Delivery Note - Labor Labor: positive: Augmented by ARM - Infant Delivery Method Delivery Method: positive: Spontaneous vaginal delivery - Presentation Presentation: positive: Vertex, Compound, DEWAYNE - right occiput anterior - Nuchal Cord Nuchal Cord: positive: None - Amniotic Fluid Description Amniotic Fluid Description: positive: Light meconium - Episiotomy Type Episiotomy Type: positive: None - Laceration Laceration: positive: None - Delivery Outcome Delivery Outcome: positive: Livebirth - : positive: Placed in direct skin contact with mother, Stimulated, Warmed, [place] used [place] sex: positive: Male - Cord Cord: positive: 3 vessels - Placenta Placenta: positive: Intact, Spontaneous - Estimated Blood Loss Estimated Blood Loss (in cc): 250 - Post Delivery Events Post Delivery Events: positive: No post delivery events - Delivery Comments (Free Text/Narrative) Delivery Comments (Free Text/Narrative): Labor: This 42yo @ 40.0wks gestation by IVF transfer date presented on 10/07/2022 with c/o contractions upon arrival she was noted to be 5/80/-2, posterior and vertex with intact membranes. FHR pattern demonstrated Category I pattern throughout labor. AROM occurred at 1105 for augmentation of labor. Normal labor course. Amniotic fluid was initially clear however at approximately 1300 there was noted to be light meconium. Pt progressed to c/c/+1 and pushing at 1320. : Normal SVB of viable male infant on 10/07/2022 @ 1354. DEWAYNE position with compound right hand. No nuchal cord. The was placed on maternal abdomen, stimulated, dried, and placed skin to skin. 's were 8/9 at 1 and 5 min respectively. The umbilical cord was allowed to stop pulsating at which time it was doubly clamped by CNM and cut by the patient. 3VC. Cord blood was obtained. Fundal massage and gentle cord traction applied for active management of the third stage. Placenta delivered spontaneously and intact at 1403. EBL 250mL. Fourth stage: Uterine fundus firm and there is no excessive bleeding. The perineum, vagina, and cervix were inspected and found to be intact. initiated. Family bonding well. Both mother and baby were left in stable condition.
[2022-10-07] MEDS: ACETAMINOPHEN 500 MG TABLET PO SCH (17:56)
[2022-10-07] MEDS: IBUPROFEN 800 MG TABLET PO SCH (17:57)
[2022-10-07] MEDS: DOCUSATE SODIUM 100 MG CAPSULE PO SCH (21:34)
[2022-10-07] MEDS: LACTATED RINGERS 1,000 ML IV SCH ×3 (22:10→22:11)
[2022-10-08] MEDS: IBUPROFEN 800 MG TABLET PO SCH ×3 (01:15→14:04)
[2022-10-08 02:10] VITALS: O2SAT 100
[2022-10-08] MEDS: ACETAMINOPHEN 500 MG TABLET PO SCH (05:04)
[2022-10-08] MEDS: LACTATED RINGERS 1,000 ML IV SCH ×2 (05:05)
[2022-10-08] MEDS: DOCUSATE SODIUM 100 MG CAPSULE PO SCH (09:40)
[2022-10-08 10:01] VITALS: BP 136/87
--- NOTE | 2022-10-08 11:13 | Discharge Plan ---
Discharge Plan Problem Reviewed?: Yes Disposition: Home, Self Care Condition: Good Diet: Regular Activity Restrictions: No Restrictions Shower Restrictions: No Driving Restrictions: No Weight Bearing: Full Weight Instruction Topics: Vaginal After No Smoking: If you smoke, Please STOP! Call for help. Follow-up with: Viola Woods CNM, ARNP [Provider Admit Priv/Credential] - 1 Week (1 week phone call on TuesdayOctober 15 @ 12:45pm with Viola Woods.)
--- NOTE | 2022-10-08 11:19 | DISCHARGE SUMMARY ---
Discharge Summary Condition at Discharge: Good Discharge Disposition: 01 Home, Self Care - HOSPITAL COURSE Hospital Course: Date of Admission: 10/07/2022 Date of Discharge: 10/08/2022 Diagnosis on Admission: 1. 42yo @ 40.0wks gestation by IVF transfer date 2. Early labor 3. Advanced maternal age 4. IVF 5. GBS negative 6. Category I FHR Diagnosis on Discharge: 1. 42yo PPD#1 s/p TSVB viable male infant 2. 3. Normal recovery Brief History: She is a patient of [facility] who presented on 10/07/2022 @ 40.0wks gestation in early labor. Upon arrival cervical was 5/80/-2 and vertex with intact membranes. AROM occurred at 1105 and was noted to be a small amount of clear amniotic fluid. 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 She progressed to spontaneously deliver a viable male infant on 10/07/2022 at 1354 over intact perineum. Agpars were 8/9 at 1 and 5 minutes respectively. EBL 250mL. She has been doing well in her course. She is ambulating and tolerating a regular diet. She is urinating without difficulty and her lochia is normal. her pain is well controlled with oral medications. She will be discharged home today on day #1 with instructions to continue taking her vitamin while and to continue taking ibuprofen and tylenol over the counter as needed for pain management. She intends to follow up with myself at [facility] in 1 week for routine visit or sooner if needed. She has been given precautions to call if she has any worsening fevers, chills, abdominal pain, increased vaginal bleeding or foul smelling vaginal lochia. Physical Exam: Normocephalic, atraumatic. Heart RRR w/o M/G?R, lungs CTAB, abdomen soft and nontender. Fundus firm at U. Perineum intact, light lochia rubra, bilateral LE's no edema, mood is good. - ALLERGIES Allergies/Adverse Reactions: Allergies Allergy/AdvReac Type Severity Reaction Status Date / Time codeine Allergy Cramps Verified 10/22/17 21:00 - LABS Result Diagrams: 10/07/22 05:05
--- NOTE | 2022-10-08 16:02 | Labor Flowsheet ---
Labor Flowsheet Datetime Report Generated by CPN: 10/08/2022 16:02 Datetime: 10/08/2022 09:34 VITAL SIGNS NBP Sys/Mehnaz/Mean (mmHg): 136 : 87 : 100 Pulse: 100 Datetime: 10/08/2022 02:00 SpO2 (%): 97 Datetime: 10/07/2022 15:46 Stage of : Recovery Datetime: 10/07/2022 15:03 Respirations: 16 Temperature (C): 36.8 Temperature Route: Oral PAIN Pain Scale: 2 Datetime: 10/07/2022 14:30 Pain Presence: Constant Pain Location: Perineum Pain Relief Measures: Pain Medication Given Datetime: 10/07/2022 13:54 UTERINE ACTIVITY Monitor Mode: Palpation Frequency (min): 1-3 Quality: Strong Resting Tone (Palpate): Relaxed ASSESSMENT A Monitor Mode: External US Comments: FHR 130s-140. deceleration with pushing. baby delivered 1354 Datetime: 10/07/2022 13:45 Variability: Moderate 6-25 bpm Accelerations: 15X15 Datetime: 10/07/2022 13:43 Pushing Position: Pushing with Contractions Pushing Progress: Descent with Pushing Datetime: 10/07/2022 13:25 LaborFlag: Labor Datetime: 10/07/2022 13:20 STAGE 2 Pushing: Coached on Pushing; Urge to Push Datetime: 10/07/2022 13:00 Membrane Status: Meconium Datetime: 10/07/2022 12:35 VAGINAL EXAM Dilatation (cm): 8.0 Effacement (%): 100 Station: 0 Exam by: Viola Darr CNM Datetime: 10/07/2022 11:52 Pain Type: Contraction Pain Coping: Crying Datetime: 10/07/2022 11:30 Patient Position/Activity: Birthing Ball Datetime: 10/07/2022 11:05 Membranes Rupture Method: Artificial Amniotic Fluid Color: Clear Amniotic Fluid Amount: Small Datetime: 10/07/2022 09:35 COMMUNICATION Communication Comments: spinning baby done Datetime: 10/07/2022 08:15 FHR Baseline Rate : 140 Datetime: 10/07/2022 07:15 Comfort Measures: Hot Shower/Tub/Spa; Family Support Datetime: 10/07/2022 06:34 Duration (sec): 70-100 Pattern: Normal: <= 5 Contractions in 10 Minutes Decelerations: None Category: Category I Datetime: 10/07/2022 05:46 Teaching Comments: Advised pt to notify RN if SROM, has constant rectal pressure or urge to push, i f has [place], vision changes or epigastric pain. Pt verb understanding and agreed Datetime: 10/07/2022 05:27 TEACHING Instructional Method: Verbal; Patient Instructed; Family/Support Person Instructed; Verbalized Unde rstanding Plan of Care: Plan of Care Discussed; Vaginal Delivery; Labor Labor/Induction: Labor Stages; Interventions; Activity; Pushing Methods Pain Management: IV Narcotics; Epidural; PRN Medications; Pain Scale/Goals; Comfort Measures Medications: IV Narcotics Related: Hydration Datetime: 10/07/2022 05:05 PATIENT CARE IV/Blood Work: IV Started; Labs Drawn with IV Start (Annotations: 20g L wrist in 1 attempt ) Patient Care Comments: CBC and T_S Datetime: 10/07/2022 04:51 Unit Routine: [place] to Room; Call [place]; Bed; Handwashing; Flu/Illness Precautions; Monitorin g Datetime: 10/07/2022 04:47 I/O Interventions: Up to BR
== END 2022-10-08 15:20 | disposition home or self-care (01) | DRG 807 ==
LOC: WFO 04:32 → FBP 04:33 → WFO 04:38 → FBP 04:39
PROVIDERS: ADMIT Nurse Practitioner Obstetrics & Gynecology; ATTEND Nurse Practitioner Obstetrics & Gynecology
PROC: 10E0XZZ Delivery of Products of Conception, External Approach (ICD-10-PCS; principal; 2022-10-07)
PROC: 10907ZC Drainage of Amniotic Fluid, Therapeutic from Products of Conception, Via Natural or Artificial Opening (ICD-10-PCS; 2022-10-07)
PROC: 4A0HXCZ Measurement of Products of Conception, Cardiac Rate, External Approach (ICD-10-PCS; 2022-10-07)
DX: O77.0 Labor and delivery complicated by meconium in amniotic fluid (principal); Z37.0 Single live birth; Z3A.40 40 weeks gestation of pregnancy; O76 Abnormality in fetal heart rate and rhythm complicating labor and delivery
CPT/HCPCS: 85025; 86850; 86900; 86901; A9270; J7120